=== PATIENT | male | born 1970 | race Hispanic/Latino ===

== ENCOUNTER 2017-12-02 03:27 | Emergency (ER) | payer BC, OTHER | END 2017-12-02 03:51 | disposition left against medical advice (07) | LOC: EDH 03:27 | DX: R13.10 Dysphagia, unspecified (principal); I10 Essential (primary) hypertension; Z88.2 Allergy status to sulfonamides; Z88.0 Allergy status to penicillin; Z88.8 Allergy status to other drugs, medicaments and biological substances; Z53.21 Procedure and treatment not carried out due to patient leaving prior to being seen by health care provider ==

== ENCOUNTER 2019-03-17 09:35 | Emergency (ER) | payer BC, OTHER ==
[2019-03-17 09:52] LABS: APPEARANCE,URINE Clear (CLEAR); BILIRUBIN,URINE Negative (NEGATIVE); COLOR,URINE Yellow (YELLOW); GLUCOSE, URINE (UA) Negative (NEGATIVE); KETONES,URINE Negative (NEGATIVE); LEUKOCYTE ESTERASE ,URINE Negative (NEGATIVE); NITRATE,URINE Negative (NEGATIVE); OCCULT BLOOD,URINE Negative (NEGATIVE); PROTEIN,URINE Negative (NEGATIVE)
[2019-03-17] MEDS ORDERED: IOHEXOL 350 MG/ML 100ML INFUS..BTL IV ONE (09:58)
[2019-03-17 10:10] LABS: BASOPHILS % (AUTO) 0.7 % (0.0-5.0); EOSINOPHILS % (AUTO) 0.9 % (0.0-8.0); HEMATOCRIT 44.8 % (42-54); MEAN CORPUSCULAR HEMOGLOBIN 31.6 pg (27.0-33.0); MEAN CORPUSCULAR HGB CONC 34.1 g/dL (32.0-36.0); MEAN CORPUSCULAR VOLUME 92.7 fL (79-99); MONOCYTES % (AUTO) 6.3 % (3.0-13.0); NEUTROPHILS % (AUTO) 67.1 % (40.0-77.0); PLATELET COUNT (AUTO) 194 K/uL (130-400); RED BLOOD CELL COUNT(AUTO) 4.83 MIL/uL (4.50-6.20); RED CELL DISTRIBUTION WIDTH 12.9 % (11.0-15.5)
[2019-03-17 10:23] LABS: POTASSIUM 4.2 mmol/L (3.5-5.1)
[2019-03-17 10:25] LABS: BILIRUBIN,TOTAL 0.4 mg/dL (0.2-1.0); TOTAL PROTEIN, SERUM 7.4 g/dL (6.0-8.3)
[2019-03-17] MEDS ORDERED: SODIUM CHLORIDE 0.9% 1000ML 1,000 ML IV ONE (10:33)
== END 2019-03-17 11:27 | disposition home or self-care (01) ==
LOC: EDH 09:35
DX: S39.011A Strain of muscle, fascia and tendon of abdomen, initial encounter (principal); E86.0 Dehydration; I10 Essential (primary) hypertension; Z88.0 Allergy status to penicillin; Z88.2 Allergy status to sulfonamides; Z88.6 Allergy status to analgesic agent; X58.XXXA Exposure to other specified factors, initial encounter; Y93.89 Activity, other specified; Y92.89 Other specified places as the place of occurrence of the external cause; Y99.8 Other external cause status
CPT/HCPCS: 36415; 74177; 80053; 81003; 82550; 83690; 85025; 96360; 99285; J7030; Q9967

== ENCOUNTER 2019-06-08 00:12 | Emergency (ER) | payer BC | END 2019-06-08 01:03 | disposition home or self-care (01) | LOC: EDH 00:12 | DX: L02.413 Cutaneous abscess of right upper limb (principal); I10 Essential (primary) hypertension; Z98.890 Other specified postprocedural states; Z88.2 Allergy status to sulfonamides; Z88.0 Allergy status to penicillin; Z87.891 Personal history of nicotine dependence; Z88.6 Allergy status to analgesic agent ==

== ENCOUNTER 2019-08-25 20:51 | Emergency (ER) | payer BC | END 2019-08-25 23:20 | disposition home or self-care (01) | LOC: EDH 20:51 | DX: S16.1XXA Strain of muscle, fascia and tendon at neck level, initial encounter (principal); S00.83XA Contusion of other part of head, initial encounter; Z88.0 Allergy status to penicillin; Z88.2 Allergy status to sulfonamides; I10 Essential (primary) hypertension; Z98.890 Other specified postprocedural states; X58.XXXA Exposure to other specified factors, initial encounter; Y93.89 Activity, other specified; Y92.89 Other specified places as the place of occurrence of the external cause; Y99.8 Other external cause status | CPT/HCPCS: 76536 ==

== ENCOUNTER 2021-10-16 16:30 | Emergency (ER) | payer BC ==
[~2021-10-16] VITALS: Ht 177.8 cm; Wt 81.6 kg
[2021-10-16 18:16] VITALS: BP 148/88
== END 2021-10-16 18:17 | disposition home or self-care (01) ==
LOC: EDH 16:30
DX: S80.01XA Contusion of right knee, initial encounter (principal); Z88.0 Allergy status to penicillin; Z88.2 Allergy status to sulfonamides; Z88.8 Allergy status to other drugs, medicaments and biological substances; Z90.89 Acquired absence of other organs; W51.XXXA Accidental striking against or bumped into by another person, initial encounter; Y93.89 Activity, other specified; Y92.89 Other specified places as the place of occurrence of the external cause; Y99.8 Other external cause status
CPT/HCPCS: 73562

== ENCOUNTER 2024-05-15 09:51 | Emergency (ER) | payer BC ==
[~2024-05-15] VITALS: Ht 177.8 cm; Wt 80.3 kg
[2024-05-15] MEDS: Solu-medROL 125MG VIAL IVP ONE (11:01)
[2024-05-15] MEDS: CYCLOBENZAPRINE HCL 10 MG TABLET PO ONE (11:01)
[2024-05-15] MEDS: ketOROlac 30MG VIAL (30MG/ML) IVP ONE (11:01)
[2024-05-15] MEDS ORDERED: IBUP-2077 PO (12:27)
[2024-05-15] MEDS ORDERED: METH4TAB3 PO (12:27)
[2024-05-15] MEDS ORDERED: CYCL10TA16 PO (12:27)
[2024-05-15] MEDS: ondanSETRON 4MG INJ IVP ONE (13:00)
[2024-05-15] MEDS: morPHINE 2 MG SYG IVP ONE (13:00)
[2024-05-15 13:08] VITALS: BP 129/70; PULSE 77; RESP 18; TEMP 98; O2SAT 99
== END 2024-05-15 13:29 | disposition home or self-care (01) ==
LOC: EDH 09:51
DX: G57.01 Lesion of sciatic nerve, right lower limb (principal); I10 Essential (primary) hypertension; Z88.0 Allergy status to penicillin; Z88.2 Allergy status to sulfonamides; Z88.8 Allergy status to other drugs, medicaments and biological substances; Z90.89 Acquired absence of other organs
CPT/HCPCS: 99284; 96374; 96375; 72100; J2270; J2919; J2405; J1885

== ENCOUNTER 2024-05-19 12:15 | Emergency (ER) | payer BC ==
[~2024-05-19] VITALS: Ht 177.8 cm; Wt 81.6 kg
[~2024-05-19 12:15] MED LIST: CYCL10TA16 PO; IBUP-2077 PO; METH4TAB3 PO
[2024-05-19 12:16] VITALS: BP 127/83; PULSE 88; RESP 16; TEMP 98.4
== END 2024-05-19 13:15 | disposition home or self-care (01) ==
LOC: EDH 12:15
DX: G57.01 Lesion of sciatic nerve, right lower limb (principal); I10 Essential (primary) hypertension; Z88.0 Allergy status to penicillin; Z88.2 Allergy status to sulfonamides; Z90.89 Acquired absence of other organs
CPT/HCPCS: 99282